=== PATIENT | male | born 1950 | race African-American/Black ===

== ENCOUNTER 2018-08-13 14:37 | Inpatient (IN) | payer OTHER ==
[~2018-08-13] VITALS: Ht 170.2 cm; Wt 70.1 kg
--- NOTE | ~2018-08-13 | HC ---
[facility] [place] [address] CONSULTATION Name: SHELBI RAE Room #: 246-P ADM IN M.R.#: [id number] Admission: 08/13/18 ������������������ Attend Phys: Jesus Garcia MD Discharge: ������������������ Date of : 46 Report #: [id number] THIS REPORT FOR: //name// CC: Evans Garcia DATE OF SERVICE: 08/15/2018 REASON FOR CONSULTATION: Elevated blood pressure. REASON FOR PRESENTATION: Sent from his Cardiology Clinic. HISTORY OF PRESENT ILLNESS: This is a 67-year-old with past medical history of hypertension. He was in his Cardiology Clinic. He was found to be in AFib with RVR and was sent to the hospital after he reported some palpitation. On arrival to the Emergency Room, the patient was found to be on hypertensive urgency with the blood pressure of 220/103. In talking with the patient, he tells me that he has long-standing hypertension, but he is not really sure about the duration. He tells me that most of his blood pressure readings are not at target with him being maintained on amlodipine, hydrochlorothiazide, clonidine. He does not know if he has any eye changes related to his blood pressure being out of control. His EKG showed left ventricular hypertrophy. He has no lower extremity edema. I am being consulted to manage his hypertension. PAST MEDICAL HISTORY: 1. Atrial fibrillation. 2. Atrial flutter. 3. Hypertension. 4. Chronic kidney disease. MEDICATIONS: 1. Amlodipine. 2. Clonidine. 3. Hydrochlorothiazide. ALLERGIES: None. FAMILY HISTORY: His dad had hypertension. REVIEW OF SYSTEMS: GENERAL: No fever or chills. CARDIOVASCULAR: Significant for palpitation. PULMONARY: No cough or hemoptysis. GASTROINTESTINAL: No nausea or vomiting. GENITOURINARY: No frequency, no urgency. [facility] [address] [place] [address] CONSULTATION Name: SHELBI RAE Room #: 246-P 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 No drug or alcohol abuse. PHYSICAL EXAMINATION: VITAL SIGNS: Blood pressure is 170/70. He had some good blood pressure reading yesterday at 147/60 and 135/58 while maintained on Cardizem drip. HEAD AND NECK: No jugular venous distention. CHEST: No crackles. CARDIOVASCULAR: No rub. ABDOMEN: Soft, nontender. LOWER EXTREMITIES: No edema. LABORATORY DATA: Reviewed. There is no renal panel from this morning; however, his creatinine was 1.4 yesterday. His imaging including his ultrasound reviewed and there is some criteria for renal artery stenosis. ASSESSMENT, IMPRESSION AND PLAN: 1. Hypertensive urgency. 2. Atrial fibrillation and flutter. 3. Discussed the Doppler finding with the patient. I explained for him the potential presence of renal artery stenosis, explained for the patient modalities of therapies for blood pressure and potential renal artery stenosis including the need for an angiogram and potential need for angioplasty and stenting of the renal arteries. At this point, the patient does not want to proceed with the above-mentioned procedures. He wants to continue with the medical conservative therapy. Ideally and per the guidelines, the patient should be on chlorthalidone, losartan, Aldactone twice a day. Currently, being treated for his atrial fibrillation with atenolol and this also should be continued. 4. We will further adjust his medications accordingly. 5. I explained for the patient that if this does not control his blood pressure, he will need an angioplasty. 6. Recheck his renal function and urine studies with the evaluation for urine protein to creatinine ratio. ��������������������������������������������� ���������������������������������������� By: ��������������������������������������������� 0842 2223 Prema Miranda MD /nt
[2018-08-13 14:38] VITALS: BP 205/115
[2018-08-13 15:03] LABS: ABSOLUTE NEUTROPHILS 6.7 thou/uL (1.4-8.2); BASOPHILS 0.8 % (0.0-2.0); EOSINOPHILS 1.1 % (0.0-3.0); HEMATOCRIT 47.5 % (42.0-52.0); HEMOGLOBIN 16.2 gm/dL (14.0-18.0); LYMPHOCYTES 23.7 % (24.0-44.0); MCHC 34.2 g/dL (28.0-37.0); MCV 87.8 fL (80.0-100.0); PLATELET COUNT 178 thou/uL (150-400); POLYS 68.4 % (36.0-66.0); RBC 5.41 mil/uL (4.50-6.00); RDW 12.8 % (10.5-14.5); WBC 9.8 thou/uL (4.0-11.0)
[2018-08-13 15:11] LABS: ANION GAP 11 mmol/L (7-16); BUN 19 mg/dL (7-18); CALCIUM 10.4 mg/dL (8.5-10.1); CHLORIDE 99 mmol/L (98-107); CO2 27 mmol/L (21-32); CREATININE 1.5 mg/dL (0.7-1.3); GLUCOSE 186 mg/dL (74-106); POTASSIUM 4.3 mmol/L (3.5-5.1); SODIUM 137 mmol/L (136-145)
[2018-08-13 15:20] LABS: ALBUMIN 4.6 g/dL (3.4-5.0); SGOT 45 U/L (15-37); SGPT 34 U/L (30-65); TOTAL BILIRUBIN 0.6 mg/dL (<0.1-1.0); TOTAL PROTEIN 10.1 g/dL (6.4-8.2); TROPONIN-I <0.06 ng/mL (<0.06)
[2018-08-13] MEDS ORDERED: CLONIDINE HCL0.3 M3 PO (15:29)
[2018-08-13] MEDS ORDERED: NORVASC10 MG PO (15:29)
[2018-08-13] MEDS ORDERED: HYDROCHLOROTH12.5 M1 PO (15:29)
--- NOTE | 2018-08-13 16:18 | EKG ---
[place] [address] [facility] [employer] [place] [address] ELECTROCARDIOGRAM REPORT Name: SHELBI RAE Room #: JOSSIE Mera#: [id number] ������������������ Admission: 08/13/18 ������������������ Attend Phys: Discharge: ������������������ Date of : 46 Report #: [id number] ����������������������������������������������������������������� [id number] THIS REPORT FOR: //name// [facility] ED Test Date: 2018-08-13 Test Time: 14:59:36 Pat Name: SHELBI RAE Department: Room: Gender: Hse Coordinator: NIKKOMiles : 1950 Requested By: Alana Bass Order Number: [id number] MD: Satnam Sparrow Measurements Intervals [place] Rate: 87 P: 50 ND: 134 QRS: 32 QRSD: 78 T: 203 QT: 320 QTc: 385 Interpretive Statements Sinus rhythm LVH with secondary repolarization abnormality No previous ECG available for comparison Electronically Signed On 08-13-2018 16:18:10 CARBURETOR REBUILDER by Satnam Sparrow [email or web address] ��������������������������������������������� <ELECTRONICALLY SIGNED> ���������������������������������������� By: Satnam Sparrow MD, [facility] ��������������������������������������������� 08/13/18 1618 1459 1459 Satnam Sparrow MD, FACC /EPI
--- NOTE | 2018-08-13 16:18 | EKG ---
[facility] [place] [address] ELECTROCARDIOGRAM REPORT Name: SHELBI RAE Room #: REG RAMONA Mera#: [id number] ������������������ Admission: 08/13/18 ������������������ Attend Phys: Discharge: ������������������ Date of : 46 Report #: [id number] ����������������������������������������������������������������� [id number] THIS REPORT FOR: //name// [facility] ED Test Date: 2018-08-13 Test Time: 14:32:48 Pat Name: SHELBI RAE Department: Room: Gender: M Driftman: KOSTAS : 1950 Requested By: Alana Bass Order Number: [id number] MD: Satnam Sparrow Measurements Intervals [place] Rate: 180 P: CT: QRS: 43 QRSD: 79 T: 190 QT: 285 QTc: 494 Interpretive Statements Atrial flutter with rapid V-rate Probable LVH with secondary repol abnrm ST depression, probably rate related Baseline wander in lead(s) V6 No previous ECG available for comparison Electronically Signed On 08-13-2018 16:17:58 TRANSFORMER BUILDER by Satnam Sparrow [email or web address] ��������������������������������������������� <ELECTRONICALLY SIGNED> ���������������������������������������� By: Satnam Sparrow MD, [facility] ��������������������������������������������� 08/13/18 1617 1432 143 Satnam Sparrow MD, FACC /EPI
[2018-08-13 17:05] VITALS: BP 227/110
[2018-08-13 17:22] VITALS: BP 180/88
--- NOTE | 2018-08-13 18:37 | NUR ---
PT ADMITTED FROM ER. ADMISSION HX AND ASSESSMENT COMPLETED. HAS HIGH BP AND HR. DR BAUMANN AND DR HAMMER AWARE. ORDERS GIVEN TO INSERT A PICC LINE. PT ORIENTED TO THE ROOM AND THE CALL SYSTEM.
[2018-08-13 19:22] VITALS: BP 198/100
--- NOTE | 2018-08-13 20:58 | NUR ---
PLACED A PICC FOR CARDIZEM AND MULTIPLE CARDIAC ISSUES, PLEASE SEE INSERTION NOTE FOR DETAILS
[2018-08-13 23:44] VITALS: BP 198/60; BP 198/89
[2018-08-14] VITALS (24 sets, daily range): BP systolic 127–226; BP diastolic 53–82
--- NOTE | 2018-08-14 04:38 | NUR ---
ASSUMED PT CARE AT 1900 WITH ELEVATED BLOOD PRESSURE AND AFIB WITH RVR. PT IS LAYING IN BED STABLE WITH FAMILY AT BEDSIDE. PT IS ON CARDIZEM DRIP. BLOOD PRESSURE IS ELEVATED, FINANCIAL ACCOUNTING MANAGER NOTIFIED AND MEDICATIONS ORDERED. ON THE MONITOR PT HEART RHYTHM IS CONVERTED BACK TO NORMAL SINUS RHYTHM. BLOOD PRESSURE STAYS ELEVATED. PRN DOSE OF HYDRALAZINE ADMINISTERED. PT CONTINUES TO REMAIN STABLE. DENIES ANY FURTHER NEEDS AT THIS TIME.
[2018-08-14 05:54] LABS: CHOLESTEROL 259 mg/dL (<200); HDL CHOLESTEROL 50 mg/dL (>40); LDL CHOLESTEROL 181 mg/dL (<100); TC:HDL 5.2 Ratio (Not establshd); TRIGLYCERIDE 140 mg/dL (<150); VLDL 28 mg/dL (<40)
[2018-08-14 06:06] LABS: SERUM ASSESSMENT Clear
[2018-08-14 07:22] LABS: HEMOGLOBIN 14.7 gm/dL (14.0-18.0); MCH 29.8 pg (26.0-34.0); MCHC 34.1 g/dL (28.0-37.0); MCV 87.2 fL (80.0-100.0); RBC 4.93 mil/uL (4.50-6.00); RDW 13.1 % (10.5-14.5); WBC 12.5 thou/uL (4.0-11.0)
[2018-08-14 07:25] LABS: CALCIUM 9.6 mg/dL (8.5-10.1); CREATININE 1.4 mg/dL (0.7-1.3); POTASSIUM 3.5 mmol/L (3.5-5.1)
[2018-08-14 07:34] LABS: ALBUMIN 3.6 g/dL (3.4-5.0); MAGNESIUM 1.5 mg/dL (1.8-2.4); TOTAL BILIRUBIN 0.4 mg/dL (<0.1-1.0); TOTAL PROTEIN 7.6 g/dL (6.4-8.2); TROPONIN-I 0.1 ng/mL (<0.06)
--- NOTE | 2018-08-14 08:41 | EKG ---
[address] [place] [email or web address] [address] ELECTROCARDIOGRAM REPORT Name: SHELBI RAE Room #: 209-P ADM IN M.R.#: [id number] ������������������ Admission: 08/13/18 ������������������ Attend Phys: Jesus Garcia MD Discharge: ������������������ Date of : 46 Report #: [id number] ����������������������������������������������������������������� [id number] THIS REPORT FOR: //name// [facility] Test Date: 2018-08-14 Test Time: 05:50:40 Pat Name: SHELBI RAE Department: Room: 209 P Gender: M Physician Scribe: WENCESLAO : 1950 Requested By: Jesus Garcia Order Number: [id number] MD: Satnam Sparrow Measurements Intervals [place] Rate: 74 P: 48 OR: 134 QRS: 31 QRSD: 81 T: 224 QT: 361 QTc: 401 Interpretive Statements Sinus rhythm Probable LVH with secondary repol abnrm Compared to ECG 08/13/2018 14:59:36 No significant changes Electronically Signed On 08-14-2018 8:41:18 MEDICARE COMPLIANCE AUDITOR by Satnam Sparrow [email or web address] ��������������������������������������������� <ELECTRONICALLY SIGNED> ���������������������������������������� By: Satnam Sparrow MD, [facility] ��������������������������������������������� 08/14/18 0841 0550 0550 Satnam Sparrow MD, FACC /EPI
--- NOTE | 2018-08-14 10:56 | 2DMMODE ---
[facility] [address] [place] [employer] [place] [address] 2 D/M-MODE ECHOCARDIOGRAM Name: SHELBI RAE Room #: 209-P ADM IN M.R.#: [id number] ������������� Admission: 08/13/18 ������������� Attend Phys: Jesus Garcia MD Discharge: ��� ������������� ��� Date of : 46 Date of Service: 08/14/18 1056 �� Report #: [id number] �������� ��������������������������������������������[id number] THIS REPORT FOR: //name// APPROVED REPORT Study performed: 08/14/2018 10:03:16 EXAM: Comprehensive 2D, Doppler, and color-flow Echocardiogram Patient Location: Echo lab Room #: 209 Status: routine BSA: 1.80 HR: 98 bpm BP: 226/73 mmHg Rhythm: NSR Other Information Study Quality: Good Indications Hypertension/HDD Atrial Flutter 2D Dimensions RVDd: 28.67 mm IVSd: 13.87 (7-11mm) LVOT Diam: 16.62 (18-24mm) LVDd: 30.53 mm PWd: 15.04 (7-11mm) Ascending Ao: 24.95 (22-36mm) LVDs: 16.16 (25-40mm) Aortic Root: 24.93 mm IVC: 11.00 mm Volumes Left Atrial Volume (Systole) Single Plane 4CH: 33.56 mL Single Plane 2CH: 41.16 mL LA ESV Index: 23.00 mL/m2 Aortic Valve AoV Peak Sixto.: 2.01 m/s AO Peak Gr.: 16.17 mmHg LVOT Max P.72 mmHg LVOT Max V: 1.39 m/s ELPIDIO Vmax: 1.50 cm2 Mitral Valve E/A Ratio: 0.7 MV Decel. Time: 258.15 ms [facility] [place] [place] [address] 2 D/M-MODE ECHOCARDIOGRAM Name: SHELBI RAE Room #: 209-[facility].#: [id number] ������������� Admission: 08/13/18 ������������� Attend Phys: Jesus Garcia MD Discharge: ��� ������������� ��� Date of : 46 Date of Service: 08/14/18 1056 �� Report #: [id number] �������� ��������������������������������������������[id number] MV E Max Sixto.: 0.80 m/s MV A Sixto.: 1.19 m/s MV PHT: 74.86 ms IVRT: 117.65 ms Pulmonary Valve PV Peak Sixto.: 1.94 m/s PV Peak Gr.: 15.05 mmHg Pulmonary Vein P Vein S: 0.48 m/s P Vein A: 0.30 m/s P Vein D: 0.32 m/s P Vein A Dur.: 93.4 msec P Vein S/D Ratio: 1.50 Left Ventricle The left ventricle is normal size. There is normal LV segmental wall motion. Mild to moderate concentric left ventricular hypertrophy. Left ventricular systolic function is hyperdynamic. Mild left venticular outflow tract gradient (15mmHg). LVEF 70%. Mild diastolic dysfunction is present (impaired relaxation pattern). Right Ventricle The right ventricle is normal size. The right ventricular systolic function is normal. Atria The left atrium size is normal. The right atrium size is normal. Aortic Valve The aortic valve is mildly calcified. No aortic regurgitation is present. There is no aortic valvular stenosis. Mitral Valve The mitral valve is normal in structure. There is no mitral valve regurgitation noted. No evidence of mitral valve stenosis. Tricuspid Valve The tricuspid valve is normal in structure. There is no tricuspid valve regurgitation noted. Pulmonic Valve The pulmonic valve velocities were increased There is no pulmonic valvular regurgitation. Great Vessels The aortic root is normal in size. IVC is normal in size and [address] [address] 2 D/M-MODE ECHOCARDIOGRAM Name: SHELBI RAE Room #: 209-P [facility] IN M.R.#: [id number] ������������� Admission: 08/13/18 ������������� Attend Phys: Jesus Garcia MD Discharge: ��� ������������� ��� Date of : 46 Date of Service: 08/14/18 1056 �� Report #: [id number] �������� ��������������������������������������������[id number] collapses >50% with inspiration. Pericardium There is no pericardial effusion. <Conclusion> Left ventricular systolic function is hyperdynamic. Mild left venticular outflow tract gradient (15mmHg). There is normal LV segmental wall motion. Mild to moderate concentric left ventricular hypertrophy. LVEF 70%. Mild diastolic dysfunction The aortic valve is mildly calcified. No aortic regurgitation or stenosis The mitral valve is normal in structure. No mitral valve regurgitation Pulmonary artery pressure could not be reliably ascertained There is no pericardial effusion. ��������������������������������������������� <ELECTRONICALLY SIGNED> ���������������������������������������� By: Satnam Sparrow MD, [facility] ��������������������������������������������� 08/14/18 1056 1056 1056 Satnam Sparrow MD, FACC /INF
--- NOTE | 2018-08-14 16:30 | NUR ---
ASSUMED CARE OF PATIENT AT 0700. PATIENT IS A&O X 4. PATIENT SEEN BY HOSPITALIST AND CARDIOLOGY. CONSULT PLACED FOR NEPHROLOGY. PATIENT RESTING COMFORTABLY HOWEVER ANXIOUS ABOUT ELEVATED BLOOD PRESSURE. DR. GREENE ORDERED STARTED OF NICARDIPINE DRIP. PATIENT MOVED FROM 209 TO 215 TO BE CLOSER TO THE NURSE'S STATION FOR MONITORING. PATIENT TOLERATED DRIP WELL, TITRATED TO MAX DOSE OF 12.5 MG/HR WITH BP OF 196/63 AT 1430. PATIENT TRANSFERRED TO ICU AT 1445 FOR CLOSER MONITORING.
--- NOTE | 2018-08-14 18:25 | NUR ---
PT TX FROM CCU FOR HTN CRISIS. ON CARDENE MAX AT 20. BP CURRENTLY 169/[address] EVA RUSSELL SHE STATED THAT SHE WANTED TO KEEP HIS PPRESSURE ABOVE 170 DUE TO THE FACT THAT HE IS NORMALLY 200. DID NOT WANT TO GIVE ME ANYTHING ELSE FOR THE 190'S SYSTOLIC BLOOD PRESSURE AND STATED JUST GIVE THE PRN MEDS. RENAL STATED TO DC CLONODINE PATCH AND TO START ORAL MEDIATIONS NOW. PT IS PLEASANT AND IS STILL COMPLAINING OF SLIGHT CHEST PAIN THAT THE DOCOTRS ARE AWARE OF. VSS.
[2018-08-15] VITALS (21 sets, daily range): BP systolic 116–202; BP diastolic 43–89
--- NOTE | 2018-08-15 00:19 | NUR ---
ASSUMED CARE OF PATIENT AT 1900. HEART RATE ELEVATED. CONTINUED TO INCREASE. CARDIZEM GTT INITIATED. BOILER BLOWER NOTIFIED, AGREED WITH PLAN OF CARE. PT BECAME SEVERELY TACHYCARDIC. EKG OBTAINED. DR GUALLPA NOTIFIED. ORDERS RECIEVED TO STOP CARDENE, TITRATE CARDIZEM AND PO ATENOLOL. PATIENT STATING DISCOMFORT AND CHEST PRESSURE WHEN RATE ELEVATED. ORDERS COMPLETED. HR NOW IN THE 50-60'S WITH STABLE BLOOD PRESSURE WELL. PATIENT STATES HE IS FEELING BETTER. WILL CONTINUE TO MONITOR.
--- NOTE | 2018-08-15 12:00 | EKG ---
[place] [address] [employer] [place] [address] ELECTROCARDIOGRAM REPORT Name: SHELBI RAE Room #: 246-P ADM IN M.R.#: [id number] ������������������ Admission: 08/13/18 ������������������ Attend Phys: Jesus Garcia MD Discharge: ������������������ Date of : 46 Report #: [id number] ����������������������������������������������������������������� [id number] THIS REPORT FOR: //name// [facility] Test Date: 2018-08-14 Test Time: 21:28:40 Pat Name: SHELBI RAE Department: Room: 246 P Gender: M Offset Machine Operator: Christopher PEREZ : 1950 Requested By: Stephanie Jones Order Number: [id number] MD: Vipin Mac Measurements Intervals [place] Rate: 133 P: [place]: QRS: 40 QRSD: 87 T: 240 QT: 314 QTc: 468 Interpretive Statements Atrial fibrillation with rapid V-rate LVH with secondary repol abnrm Inferior significance unknown Compared to ECG 08/14/2018 05:50:40 sinus rhythm no longer present Electronically Signed On 08-15-2018 12:00:40 PAN DEVULCANIZER by Vipin Mac [email or web address] ��������������������������������������������� <ELECTRONICALLY SIGNED> ���������������������������������������� By: Vipin Mac MD ��������������������������������������������� 03/07/05 1199 27 27 Vipin Mac MD /EPI
[2018-08-15 18:37] LABS: URINE BILIRUBIN NEGATIVE (Negative); URINE BLOOD TRACE (Negative); URINE CLARITY CLEAR; URINE COLOR YELLOW; URINE GLUCOSE-RANDOM* 1+ (Negative); URINE KETONES NEGATIVE (Negative); URINE LEUKOCYTES 1+ (Negative); URINE NITRITE POSITIVE (Negative); URINE PROTEIN (DIPSTICK) NEGATIVE (Negative); URINE UROBILINOGEN 0.2 E.U./dl (0.2-1.0)
[2018-08-15 18:40] LABS: URINE CREATININE-RANDOM* 44.5 mg/dL; URINE PROTEIN-RANDOM* 23.5 mg/dL (<11.9)
[2018-08-15 18:52] LABS: BACTERIA 1-9 Few /HPF (None Seen); CASTS None Seen /LPF (None Seen); CRYSTALS None Seen /LPF (None Seen); SQUAMOUS 0-3 Few /LPF (0-3); URINE RBC 0-2 Rare /HPF (0-2); URINE WBC 0-5 Rare /HPF (0-5)
[2018-08-16] VITALS (42 sets, daily range): BP systolic 164–252; BP diastolic 55–103
[2018-08-16 05:42] LABS: ALBUMIN 3.5 g/dL (3.4-5.0); CALCIUM 10.2 mg/dL (8.5-10.1); CREATININE 1.6 mg/dL (0.7-1.3); PHOSPHORUS 2.6 mg/dL (2.5-4.9); POTASSIUM 3.7 mmol/L (3.5-5.1)
--- NOTE | 2018-08-16 06:31 | NUR ---
PT IS HYPERTENSIVE SBP 170'S TO 200'S PRN HYDRALAZINE GIVEN PRN. PT ASYMPTOMATIC WITH HIGH BP'S RESTING, DENIES PAIN/ CHEST DISCOMFORT. SR TO SB ON THE MONITOR.
--- NOTE | 2018-08-16 15:42 | NUR ---
Pt is currently up in bedside recliner. Pt's systolic pressure continues to be resistent to medications. Systolic BP as high as 250's. Two calls placed to Dr Jon to notify of ongoing hypertension. Orders received for medications from both conversations (Cardizen CD, NTG ointment and Clonidine patch-see emar). Cardene order noted on emar. Call placed to Dr Garcia to update on pt status and clarify whether to start Cardene in light of recent additions to medications. Instruction received to wait approximately an hour after receiving NTG ointment and Clonidine-if Systolic BP remains above 200 mmHG then start Cardene. Pt's daughter has been here to visit.
--- NOTE | 2018-08-16 15:48 | NUR ---
Call received from Dr Jon for status report on patient's blood pressure. Instructed to call back with update in a couple hours and hold on starting Cardene.
--- NOTE | 2018-08-16 17:13 | NUR ---
Call placed to Dr Jon for update on pt's current blood pressure. Dr Jon returned call. Most recent blood pressure and heart values were reviewed with the doctor. Dr Jon reported he is "OK" with current blood pressure readings. No additional orders at this time. Will hold on starting Cardene per most recent orders from Dr Jon. Pt remains up in chair and is requesting to get cleaned up. Will proceed with sponge bath before dinner.
--- NOTE | 2018-08-16 18:18 | NUR ---
Sponge bath completed and pt assisted back to bed. Assisted with dinner tray. Sinus chandler with rate 40's. Noted to have ST depression in lead I, II on bedside monitor. This depression is also documented on previous 12 lead ECG's from this admission. Pt denies having any chest discomfort. Skin warm/dry. Appetite is limited but no nausea at this time. Last BP cycle systolic BP 170's.
--- NOTE | 2018-08-16 19:15 | NUR ---
Back in bed watching television. Blood pressure has improved. Systolic now in 170's range. Report given to RN assuming care.
--- NOTE | 2018-08-16 20:51 | NUR ---
PT bp 197/69 heart rate 44 to 47, notified Dr Lyn, expressed concern on giving scheduled Atenolol tonight considering low heart rate. Provider stated to go ahead and give scheduled atenolol tonight. will administer and monitor pt.
[2018-08-17] VITALS (19 sets, daily range): BP systolic 127–216; BP diastolic 37–77
[2018-08-17 06:06] LABS: HEMATOCRIT 42.4 % (42.0-52.0); HEMOGLOBIN 14.4 gm/dL (14.0-18.0); MCH 29.8 pg (26.0-34.0); MCHC 33.9 g/dL (28.0-37.0); MCV 87.7 fL (80.0-100.0); PLATELET COUNT 191 thou/uL (150-400); RBC 4.83 mil/uL (4.50-6.00); RDW 13.1 % (10.5-14.5); WBC 21.4 thou/uL (4.0-11.0)
[2018-08-17 06:14] LABS: ALBUMIN 3.4 g/dL (3.4-5.0); CREATININE 1.9 mg/dL (0.7-1.3); PHOSPHORUS 4.5 mg/dL (2.5-4.9)
--- NOTE | 2018-08-17 06:49 | NUR ---
ASSUMED CARE OF PT AT 0000. PT ALERT AND ORIENTED X4. ABLE TO AMBULATE WITH STAND BY ASSISTACE TO TOILET. PT HAD A BM. DENIES ANY PAIN. PT REMAINS BRADYCARDIC WITH ELEVATED BP. MARGINAL UO.
[2018-08-17 07:46] LABS: ABSOLUTE NEUTROPHILS 15.8 thou/uL (1.4-8.2); LARGE PLATELETS OCCASIONAL
[2018-08-17 13:38] LABS: URINE BILIRUBIN NEGATIVE (Negative); URINE BLOOD 2+ (Negative); URINE COLOR YELLOW; URINE GLUCOSE-RANDOM* 2+ (Negative); URINE KETONES NEGATIVE (Negative); URINE PROTEIN (DIPSTICK) TRACE (Negative); URINE UROBILINOGEN 0.2 E.U./dl (0.2-1.0)
[2018-08-17 13:39] LABS: URINE CLARITY CLOUDY; URINE LEUKOCYTES-REFLEX 3+ (Negative); URINE NITRITE-REFLEX POSITIVE (Negative)
[2018-08-17 13:50] LABS: CASTS None Seen /LPF (None Seen); SQUAMOUS 0-3 Few /LPF (0-3); URINE WBC-REFLEX >25 Many /HPF (0-5); WBC CLUMPS Moderate (None Seen)
[2018-08-17 13:51] LABS: BACTERIA-REFLEX >30 Many /HPF (None Seen)
[2018-08-17 13:52] LABS: CRYSTALS None Seen /LPF (None Seen)
--- NOTE | 2018-08-17 16:35 | NUR ---
Report called to Aaron receiving RN on CCU. Pt placed on food service director and assisted to bedside chair. Chair alarm activated and call light placed in reach. Pt transferred with bag of his clothing, cell phone and cell phone transformation specialist. Pt was taken to radiology for chest film prior to transfer. Remains in sinus bradycardia with rate 40's. Blood pressure elevated-see vital signs. Physiciains are aware. Pt is not symptomatic. New room is 215.
--- NOTE | 2018-08-17 20:17 | EKG ---
[address] [address] ELECTROCARDIOGRAM REPORT Name: SHELBI RAE Room #: 215-P ADM IN M.R.#: [id number] ������������������ Admission: 08/13/18 ������������������ Attend Phys: Jessu Garcia MD Discharge: ������������������ Date of : 46 Report #: [id number] ����������������������������������������������������������������� [id number] THIS REPORT FOR: //name// [facility] Test Date: 2018-08-17 Test Time: 11:36:31 Pat Name: SHELBI RAE Department: Room: 215 Gender: M Billing And Insurance Coordinator: MUNA : 1950 Requested By: Jesus Garcia Order Number: [id number] MD: Vipin Mac Measurements Intervals [place] Rate: 49 P: 59 W[place]: 130 QRS: 37 QRSD: 92 T: 109 QT: 467 QTc: 422 Interpretive Statements Sinus bradycardia left atrial enlargement LVH with secondary repolarization abnormality Compared to ECG 08/14/2018 21:28:40 Atrial fibrillation no longer present Electronically Signed On 08-17-2018 20:17:25 PARK MANAGER by Vipin Mac [email or web address] ��������������������������������������������� <ELECTRONICALLY SIGNED> ���������������������������������������� By: Vipin Mac MD ��������������������������������������������� 08/17/182016 1135 35 Vipin Mac MD /EPI
--- NOTE | 2018-08-17 21:24 | NUR ---
PATIENT ALERT AND ORIENT AND RECEIVED FROM ICU LATE AFTERNOON. ENCOURAGED PATIENT TO SPEAK WITH NEPHROLOGY IN MORE DETAIL ABOUT PROCEDURE TO HELP REDUCE BP.
[2018-08-18 01:10] VITALS: BP 199/71
--- NOTE | 2018-08-18 02:03 | NUR ---
ASSUMED CARE 1899. VSS. ASSESSMENT CHARTED. PT DENIES ANY PAIN, N/V, DIZZINESS OR CONCERN. PT BP ELEVATED, HR SB 30-50S, PROVIDERS ARE AWARE OF RATES AND EMAR MEDICATIONS-PT CURRENTLY ASYMPTOMATIC. PT STATED HE WAS SUGGESTED A PACEMAKER AND RENAL STENTS, BOTH OF WHICH HE DENIED AT THE TIME AND WOULD PREFER NATURAL OR MEDICATIONS FIRST. HE WAS REFUSING LOVENOX, BUT EDUCATED BY AM NURSE, STATES HE WILL TAKE DUE TO THE PREVIOUS AFIB UNTIL EVERYTHING IS UNDER CONTROL. PLAN FOR LABS WITH AM. WILL CONTINUE TO MONITOR AND WITH POC.
[2018-08-18 04:00] VITALS: BP 137/46
[2018-08-18 04:04] LABS: ALBUMIN 3.3 g/dL (3.4-5.0); CALCIUM 9.5 mg/dL (8.5-10.1); CREATININE 1.8 mg/dL (0.7-1.3); MAGNESIUM 1.4 mg/dL (1.8-2.4); PHOSPHORUS 4.2 mg/dL (2.5-4.9); POTASSIUM 4.1 mmol/L (3.5-5.1)
[2018-08-18 04:29] LABS: ABSOLUTE NEUTROPHILS 13.4 thou/uL (1.4-8.2); BASOPHILS 0.2 % (0.0-2.0); EOSINOPHILS 0.2 % (0.0-3.0); HEMATOCRIT 41.5 % (42.0-52.0); LYMPHOCYTES 19.9 % (24.0-44.0); MCH 29.6 pg (26.0-34.0); MCHC 33.7 g/dL (28.0-37.0); MCV 87.8 fL (80.0-100.0); MONOCYTES 7.2 % (1.0-8.0); PLATELET COUNT 172 thou/uL (150-400); POLYS 72.5 % (36.0-66.0); RBC 4.72 mil/uL (4.50-6.00); WBC 18.5 thou/uL (4.0-11.0)
[2018-08-18 05:58] LABS: LARGE PLATELETS OCCASIONAL; POLYCHROMASIA 1+
[2018-08-18 09:20] VITALS: BP 220/75
[2018-08-18 11:47] VITALS: BP 180/70
--- NOTE | 2018-08-18 15:08 | NUR ---
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 He uses no assistive device. He resides in 3rd floor apt but has elevator. Patient cont to drive. He has a dtr is needs any assist. Plan home independent with no needs.
[2018-08-18 16:00] VITALS: BP 180/89
--- NOTE | 2018-08-18 20:27 | NUR ---
PT REMAINS SB TO JUNCTIONAL RHYTHM 36-46, BP REMAINS 180-220/70-90, MD AWARE OF ABOVE VS READINGS. MEDS ALTERED. WILL OBSERVE PT AND BP. LUNGS CLEAR, RA SAT IS 1005, UP TO BRP INDEPENDENTY, STEADY ON FEET. WILL CONTINUE TO MONITER AND CARE FOR PT PER PLAN OF CARE
[2018-08-18 20:35] VITALS: BP 163/53
[2018-08-19 00:42] VITALS: BP 151/65
--- NOTE | 2018-08-19 04:20 | NUR ---
ASSUMED CARE 1900. VSS- SB-JUNCTIONAL 30S-40S ON MONITOR ASYMPTOMATIC. PT DENIES ANY CONCERNS. ROOM AIR STATS WNL. UP ST BY STEADY. BP RANGE HAS IMPROVED SOME THIS SHIFT SEE VITALS. PLAN FOR LABS THIS AM. WILL CONTINUE TO MONITOR AND WITH POC.
[2018-08-19 04:39] VITALS: BP 170/38
[2018-08-19 04:39] LABS: ALBUMIN 3.1 g/dL (3.4-5.0); CALCIUM 9.3 mg/dL (8.5-10.1); PHOSPHORUS 3.8 mg/dL (2.5-4.9); POTASSIUM 4.3 mmol/L (3.5-5.1)
[2018-08-19 08:22] VITALS: BP 185/69
[2018-08-19 12:00] VITALS: BP 184/69
[2018-08-19 16:00] VITALS: BP 200/76
--- NOTE | 2018-08-19 17:08 | NUR ---
BP REMAINS 185-200/69-76, TELEM SHOWING SB/JUNCTIONAL RHYTHM HR EARLIER THIS AM 35-40, JUNCTIONAL, THIS AFTERNOON HR 45-50 SB PT UP IN ROOM. NO C/O CHEST PAIN OR DIZZYNESS. WILL CONTINUE TO MONITER AND CARE FOR PT PER PLAN OF CARE
[2018-08-19 19:30] VITALS: BP 161/58
[2018-08-20] VITALS (10 sets, daily range): BP systolic 143–220; BP diastolic 47–158
--- NOTE | 2018-08-20 02:37 | NUR ---
ASSUMED CARE 1900. VSS. ASSESSMENT CHARTED. SB ON MONITOR 30'S-50'S, BP CONTINES TO BE ELEVATED SEE VITALS- ASYMPTOMATIC. PT DENIES CP, DIZZINESS, N/V. PLAN FOR AM LABS. WILL CONTINUE TO MONITOR AND WITH POC.
[2018-08-20 03:43] LABS: CALCIUM 9.6 mg/dL (8.5-10.1); CREATININE 2.1 mg/dL (0.7-1.3); MAGNESIUM 1.7 mg/dL (1.8-2.4); PHOSPHORUS 3.2 mg/dL (2.5-4.9); POTASSIUM 4.1 mmol/L (3.5-5.1)
[2018-08-20 04:28] LABS: HEMATOCRIT 42.1 % (42.0-52.0); MCH 29.3 pg (26.0-34.0); MCHC 33.3 g/dL (28.0-37.0); RBC 4.78 mil/uL (4.50-6.00); RDW 12.9 % (10.5-14.5); WBC 13.4 thou/uL (4.0-11.0)
[2018-08-20 08:12] LABS: ALDOSTERONE 3.9 ng/dL (0.0-30.0)
[2018-08-20] MEDS ORDERED: CHLORTHALIDONE25 MG PO (11:43)
[2018-08-20] MEDS ORDERED: MINOXIDIL10 MG PO (11:43)
[2018-08-20] MEDS ORDERED: COZAAR100 MG PO (11:43)
[2018-08-20] MEDS ORDERED: CLONIDINE1 EAC1 TRANSDERM (11:43)
[2018-08-20] MEDS ORDERED: SPIRONOLACTONE100 M1 PO (11:43)
--- NOTE | 2018-08-20 13:01 | NUR ---
patient to dc home today. He has orders for HH no preference. Referral to [facility] for review. Verified address and phone number, PCP Dr Cabrera.
--- NOTE | 2018-08-20 13:25 | NUR ---
FAXED REFERRAL TO [facility] SPOKE WITH KAYLEIGH IN ADM. SHE RECEIVED REFERRAL AND CAN ACCEPT PT. DCP WILL FAX DC ORDERS/SUMMARY TO [facility] DCP TO FOLLOW.
[2018-08-21 14:10] LABS: RENIN 0.573 ng/mL/hr (0.167-5.380)
--- NOTE | 2018-08-22 12:17 | HC ---
[facility] [place] [address] CONSULTATION Name: SHELBI RAE Room #: 215-P [facility] IN M.R.#: [id number] Admission: 08/13/18 ������������������ Attend Phys: Jesus Garcia MD Discharge: 08/20/18 ������������������ Date of : 46 Report #: [id number] THIS REPORT FOR: //name// CC: Evans Garcia DATE OF SERVICE: 08/14/2018 CARDIOLOGY CONSULTATION: REASON FOR CONSULTATION: Atrial fibrillation and atrial flutter. HISTORY OF PRESENT ILLNESS: The patient is a 67-year-old who I saw yesterday in clinic. I had initially seen him several years ago when he presented to the hospital with AFib, atrial flutter. He never followed up until yesterday. Yesterday, he was complaining of increased fatigue, shortness of breath and was found to be in atrial flutter with heart rate in the 170s-180s and systolic blood pressures in the 230s. As such, I decided to have him go to the Emergency Room for further evaluation. He was admitted to the hospital for further treatment. The patient currently denies any chest pain. His shortness of breath is stable. He denies PND or orthopnea. He denies presyncope or syncope. REVIEW OF SYSTEMS: A 12-point review of systems was performed and was negative other than what I mentioned above. PAST MEDICAL HISTORY: 1. Coronary artery disease, status post prior stent. 2. Nuclear stress test in 2017, no ischemia. 3. Hypertension. 4. Diabetes mellitus. 5. Chronic renal insufficiency. 6. Atrial fibrillation and atrial flutter. 7. The patient refuses to be on anticoagulation. ALLERGIES: None. MEDICATIONS: Have been reviewed. FAMILY HISTORY: Noncontributory. SOCIAL HISTORY: Does not smoke. PHYSICAL EXAMINATION: VITAL SIGNS: Temperature is 36.9, pulse is 80s-90s, respirations 20, blood pressure 226/76, sats 100%. [facility] [address] [place] [address] CONSULTATION Name: SHELBI RAE Room #: 215-P [facility] IN M.R.#: [id number] Admission: 08/13/18 ������������������ Attend Phys: Jesus Garcia MD Discharge: 08/20/18 ������������������ Date of : 46 Report #: [id number] GENERAL: No acute distress. HEENT: Pupils are equal and reactive to light. Oropharynx is clear. NECK: Supple, with no thyromegaly. HEART: Regular rate and rhythm with no murmurs, rubs, gallops. LUNGS: Clear to auscultation bilaterally. ABDOMEN: Soft, nontender, nondistended with no hepatosplenomegaly. EXTREMITIES: No clubbing, cyanosis, edema. NEUROLOGIC: Cranial nerves 2-12 intact. LABORATORY DATA: A 12-lead EKG this morning shows sinus rhythm. Telemetry shows periods of atrial flutter, now resolved. CBC is normal. Chemistry: Creatinine 1.4. Troponin 0.1. LDL 180. ASSESSMENT: 1. Hypertensive emergency. 2. Atrial fibrillation/atrial flutter. 3. Elevated troponin. 4. Likely chronic renal insufficiency. In summary, the patient is a 67-year-old presenting to the ER with atrial flutter with rapid ventricular response and hypertensive emergency. He has a slightly elevated troponin. With regards to his atrial fibrillation, atrial flutter, I have recommended that we initiate amiodarone therapy. We discussed that he will need long-term followup for this and will need routine monitoring of liver, thyroid, and pulmonary function. He understands these requests. With regards to his hypertension, he has been started on medications and his blood pressure is still very elevated. I have recommended that a Nephrology consult be obtained. I will obtain renal ultrasound. With regards to his elevated troponin, this is likely due to his hypertension and atrial flutter with rapid ventricular response. He has no anginal symptoms and there is no ischemia on his EKG. Therefore, no stress testing is required at this time. We will follow. ��������������������������������������������� <ELECTRONICALLY SIGNED> ���������������������������������������� By: Karson Lyn MD ��������������������������������������������� 08/22/18 [id number] Karson Lyn MD /nt
== END 2018-08-20 16:16 | disposition home health service (06) | DRG 308 ==
LOC: ER 14:37 → EROBS 17:06 → 2N 17:06 → ICU 08-14 15:18 → 2N 08-17 16:22 → ENTRNSPT 08-20 16:16
PROVIDERS: Hospitalist; Student in an Organized Health Care Education/Training Program; ADMIT Internal Medicine
DX: I48.0 Paroxysmal atrial fibrillation (principal); N17.0 Acute kidney failure with tubular necrosis; I16.1 Hypertensive emergency; I48.92 Unspecified atrial flutter; I43 Cardiomyopathy in diseases classified elsewhere; I13.10 Hypertensive heart and chronic kidney disease without heart failure, with stage 1 through stage 4 chronic kidney disease, or unspecified chronic kidney disease; I70.1 Atherosclerosis of renal artery; I25.10 Atherosclerotic heart disease of native coronary artery without angina pectoris; N18.9 Chronic kidney disease, unspecified; E11.22 Type 2 diabetes mellitus with diabetic chronic kidney disease; Z53.29 Procedure and treatment not carried out because of patient's decision for other reasons; Z79.899 Other long term (current) drug therapy; Z82.49 Family history of ischemic heart disease and other diseases of the circulatory system; R00.1 Bradycardia, unspecified; Y92.239 Unspecified place in hospital as the place of occurrence of the external cause; T46.1X5A Adverse effect of calcium-channel blockers, initial encounter
CPT/HCPCS: 10081; 10203; 27000